=== PATIENT | male | born 1975 | race Caucasian/White ===

== ENCOUNTER 2017-07-25 16:39 | Emergency (ER) | payer OTHER ==
[2017-07-25] MEDS ORDERED: KETOROLAC 30 MG/ML INJ ONE (17:27)
[2017-07-25] MEDS ORDERED: DIAZEPAM 10 MG/2 ML INJ SYRINGE ONE (17:29)
--- NOTE | 2017-07-25 17:52 | EDPHYS ---
Physician Documentation [facility] Name: Bridger Leonardo Age: 42 yrs Sex: Male : 1975 Arrival Date: 07/25/2017 Time: 16:43 Bed 20 Private MD: None, None ED Physician Ari Champion HPI: 07/25 17:12 This 42 yrs old Male presents to ER via Ambulatory with complaints of Back ma2 Pain. 17:12 The patient presents with pain that is acute, and spasm. The symptoms are located in ma2 the low back. Onset: The symptoms/episode began/occurred gradually, 1 day(s) ago. Associated signs and symptoms: Pertinent negatives: abdominal pain, headache, hematuria, incontinence, nausea, numbness, tingling, urinary retention, vomiting, weakness. The problem was sustained when lifting. Modifying factors: the patient symptoms are aggravated by any movement. Severity of symptoms: At their worst the symptoms were moderate. The patient has experienced a previous episode. Historical: - Allergies: 16:55 NKA; aj - Home Meds: 16:55 None [Active]; aj - PMHx: 16:55 None; aj - PSHx: 16:55 Hernia repair; aj - Immunization history:: Adult Immunizations up to date. - Social history:: Smoking status: Patient uses tobacco products, smokes one-half pack cigarettes per day, Patient/guardian denies using alcohol, street drugs, The patient lives with family. - Family history:: not pertinent. - Ebola Screening: : No symptoms or risks identified at this time. ROS: 17:12 Back: Positive for decreased range of motion, pain with movement, Negative for injury ma2 or acute deformity. 17:12 MS/extremity: Positive for decreased range of motion, Negative for 17:12 All other systems are negative. 17:54 Eyes: Negative for injury, pain, redness, and discharge. ma2 Exam: 17:12 Constitutional: This is a well developed, well nourished patient who is awake, alert, ma2 and in no acute distress. Head/Face: Normocephalic, atraumatic. Cardiovascular: Regular rate and rhythm with a normal S1 and S2. No gallops, murmurs, or rubs. Normal PMI, no JVD. No pulse deficits. Respiratory: Lungs have equal breath sounds bilaterally, clear to auscultation and percussion. No rales, rhonchi or wheezes noted. No increased work of breathing, no retractions or nasal flaring. Abdomen/GI: Soft, non-tender, with normal bowel sounds. No distension or tympany. No guarding or rebound. No evidence of tenderness throughout. MS/ Extremity: Pulses equal, no cyanosis. Neurovascular intact. Full, normal range of motion. Neuro: Awake and alert, GCS 15, oriented to person, place, time, and situation. Cranial nerves II-XII grossly intact. Motor strength 5/5 in all extremities. Sensory grossly intact. Cerebellar exam normal. Normal gait. Psych: Awake, alert, with orientation to person, place and time. Behavior, mood, and affect are within normal limits. 17:12 Back: pain, that is moderate, of the left low back, left mid back, right mid back and right low back, ROM is painful, normal spinal alignment noted, vertebral tenderness, is not appreciated, muscle spasm, is appreciated in the left low back, left mid back, right mid back and right low back. Vital Signs: 16:55 BP 119 / 83; Pulse 91; Resp 20; Temp 97.9; Pulse Ox 97% on R/A; Weight 74.84 kg; Height aj 5 ft. 9 in. (175.26 cm); Pain 10/10; 18:00 BP 119 / 81; Pulse 81; Resp 16; Pulse Ox 99% on R/A; Pain 7/10; em 16:55 Body Mass Index 24.37 (74.84 kg, 175.26 cm) aj MDM: 17:07 Patient medically screened. ma2 17:12 Differential diagnosis: Osteoarthritis ruptured disc, Scoliosis spinal injury, sprain. ma2 17:51 Data reviewed: vital signs, nurses notes, EMS record. Counseling: I had a detailed [facility] discussion with the patient and/or guardian regarding: the historical points, exam findings, and any diagnostic results supporting the discharge/admit diagnosis, lab results, the need for outpatient follow up. Response to treatment: the patient's symptoms have markedly improved after treatment. Administered Medications: 17:37 Drug: TORadol 60 mg Route: IM; Site: left gluteus; em 18:10 Follow up: Response: No adverse reaction; Pain is decreased em 17:38 Drug: Valium 10 mg {Note: administered in the right gluteus.} Route: IVP; Site: Other; em 18:10 Follow up: Response: No adverse reaction; Pain is decreased em Disposition: 07/25/17 17:52 Discharged to Home. Impression: Low back pain. - Condition is Stable. - Discharge Instructions: Back Pain, Adult. - Prescriptions for Tylenol- Codeine #3 300-30 mg Oral Tablet - take 2 tablet by ORAL route every 6 hours As needed; 30 tablet. Cyclobenzaprine 10 mg Oral Tablet - take 1 tablet by ORAL route every 8 hours As needed; 30 tablet. Prednisone 20 mg Oral Tablet - take 2 tablets by ORAL route once daily for 4 days; 10 tablet. - Medication Reconciliation Form, Thank You Letter, Antibiotic Education, Prescription Opioid Use form. - Follow up: Private Physician; When: Tomorrow; Reason: Continuance of care. - Problem is new. - Symptoms have improved. Signatures: Delaney Menendez RN RN aj Munoz, Edgar, AGRICULTURAL INSPECTOR AGRICULTURAL INSPECTOR Ari Champion MD MD ma2 Corrections: (The following items were deleted from the chart) 18:12 17:52 07/25/2017 17:52 Discharged to Home. Impression: Low back pain. Condition is em Stable. Forms are Medication Reconciliation Form, Thank You Letter, Antibiotic Education, Prescription Opioid Use. Follow up: Private Physician; When: Tomorrow; Reason: Continuance of care. Problem is new. Symptoms have improved. ma2
--- NOTE | 2017-07-25 17:52 | ER ---
Nurse's Notes [facility] Name: Bridger Leonardo Age: 42 yrs Sex: Male : 1975 Arrival Date: 07/25/2017 Time: 16:43 Bed 20 Private MD: None, None Diagnosis: Low back pain Presentation: 07/25 16:54 Presenting complaint: Patient states: Reports lower back pain since yesterday, radiates aj down right leg. Transition of care: patient was not received from another setting of care. Onset of symptoms was July 25, 2017. Care prior to arrival: None. 16:54 Method Of Arrival: Ambulatory aj 16:54 Acuity: OMAYRA 4 aj 17:44 Risk Assessment: Do you want to hurt yourself or someone else? Patient reports no em desire to harm self or others. Initial Sepsis Screen: Does the patient meet any 2 criteria? No. Patient's initial sepsis screen is negative. Does the patient have a suspected source of infection? No. Patient's initial sepsis screen is negative. Triage Assessment: 16:55 General: Appears in no apparent distress. comfortable, Behavior is calm, cooperative, aj appropriate for age. Pain: Complains of pain in low back area. Neuro: Level of Consciousness is awake, alert, obeys commands, Oriented to person, place, time, situation, Appropriate for age. Respiratory: Airway is patent Respiratory effort is even, unlabored, Respiratory pattern is regular, symmetrical. Derm: Skin is intact, is healthy with good turgor, Skin is pink, warm \T\ dry. normal. Musculoskeletal: Circulation, motion, and sensation intact. Reports pain in low back area. Historical: - Allergies: 16:55 NKA; aj - Home Meds: 16:55 None [Active]; aj - PMHx: 16:55 None; aj - PSHx: 16:55 Hernia repair; aj - Immunization history:: Adult Immunizations up to date. - Social history:: Smoking status: Patient uses tobacco products, smokes one-half pack cigarettes per day, Patient/guardian denies using alcohol, street drugs, The patient lives with family. - Family history:: not pertinent. - Ebola Screening: : No symptoms or risks identified at this time. Screenin:45 Abuse screen: Denies threats or abuse. Nutritional screening: No deficits noted. em Tuberculosis screening: No symptoms or risk factors identified. Fall Risk None identified. Assessment: 17:05 General: Appears in no apparent distress. uncomfortable, Behavior is calm, cooperative. em Pain: Complains of pain in low back area Pain currently is 10 out of 10 on a pain scale. Quality of pain is described as crampy, Pain began 1 day ago. Neuro: Level of Consciousness is awake, alert, obeys commands, Oriented to person, place, time, situation, Gait is steady, Tingling in right leg and left leg. Cardiovascular: Capillary refill < 3 seconds Patient's skin is warm and dry. Respiratory: Airway is patent Respiratory effort is even, unlabored, Respiratory pattern is regular, symmetrical. GI: Abdomen is flat, Patient currently denies nausea, vomiting. : Denies incontinence. EENT: No signs and/or symptoms were reported regarding the EENT system. Derm: Skin is intact, Skin is pink, warm \T\ dry. Musculoskeletal: Range of motion: intact in all extremities. 17:20 Reassessment: I agree with above assessment by Otto Eldridge LVN. iw 18:10 Reassessment: Patient appears in no apparent distress at this time. Patient and/or em family updated on plan of care and expected duration. Pain level reassessed. Patient is alert, oriented x 3, equal unlabored respirations, skin warm/dry/pink. Patient states feeling better. Vital Signs: 16:55 BP 119 / 83; Pulse 91; Resp 20; Temp 97.9; Pulse Ox 97% on R/A; Weight 74.84 kg; Height aj 5 ft. 9 in. (175.26 cm); Pain 10/10; 18:00 BP 119 / 81; Pulse 81; Resp 16; Pulse Ox 99% on R/A; Pain 7/10; em 16:55 Body Mass Index 24.37 (74.84 kg, 175.26 cm) ED Course: 16:43 Patient arrived in ED. mr 16:43 None, None is Private Physician. mr 16:54 Triage completed. aj 16:55 Arm band placed on left wrist. Patient placed in an exam room. aj 16:58 Ari Champion MD is Attending Physician. ma2 16:59 Otto Eldridge LVN is Primary Nurse. em 17:44 No provider procedures requiring assistance completed. em 17:46 Patient has correct armband on for positive identification. Placed in gown. Bed in low em position. Adult w/ patient. 18:09 Patient did not have IV access during this emergency room visit. em Administered Medications: 17:37 Drug: TORadol 60 mg Route: IM; Site: left gluteus; em 18:10 Follow up: Response: No adverse reaction; Pain is decreased em 17:38 Drug: Valium 10 mg {Note: administered in the right gluteus.} Route: IVP; Site: Other; em 18:10 Follow up: Response: No adverse reaction; Pain is decreased em Outcome: 17:52 Discharge ordered by MD. santiago 18:09 Discharged to home ambulatory. em 18:09 Condition: good 18:09 Discharge instructions given to patient, Instructed on discharge instructions, follow up and referral plans. no drinking with medication, no driving heavy equipment, medication usage, Demonstrated understanding of instructions, follow-up care, medications, Prescriptions given X 3. 18:12 Patient left the ED. em Signatures: Delaney Menendez, Rhonda Galaviz RN, Edgar, CIRCULAR GANG SAW OPERATOR CIRCULAR GANG SAW OPERATOR em Marquita Negro, Ari Curtis RN, MD MD ma2
== END 2017-07-25 18:12 | disposition home or self-care (01) ==
LOC: ER 16:39
DX: M54.5 Low back pain (principal); F17.210 Nicotine dependence, cigarettes, uncomplicated
CPT/HCPCS: 96372; 96374; 99283; J3360